=== PATIENT | male | born 1970 | race Two or more races ===

== ENCOUNTER 2020-05-29 19:29 | Inpatient (IN) | payer MEDICAID ==
[~2020-05-29] VITALS: Ht 177.8 cm; Wt 115.0 kg
--- NOTE | 2020-05-29 19:51 | NUR ---
pt was transfered by [facility] via [facility] for difficulty breathing, dizzyness and for pt to recieve dialysis. flight crew said pt was on bipap at contact and that his blood sugar was 27. pt was given d10 in route with bipap remved. pt blood sugar at contatct was 212 with pt o2 sats at 98% on 4l nc. pt has c/o left flank pain.
--- NOTE | 2020-05-29 19:59 | NUR ---
REPORT GIVEN TO JAH Huynh
--- NOTE | 2020-05-29 19:59 | NUR ---
FLIGHT CREW STATED "PT HAD A NEG RAPID COVID TEST PRIOR TO FLIGHT"
[2020-05-29] MEDS ORDERED: ACETAMINOPHEN 500 MG TABLET ONE (20:08)
[2020-05-29 20:13] LABS: MEAN CORPUSCULAR HGB CONC 32.5 g/dL (33.2-36.2); MEAN PLATELET VOLUME 6.1 fL (7.4-10.4); PLATELET COUNT 265 x10^3/uL (130-400); RED BLOOD COUNT 3.43 x10^6/uL (4.38-5.82); RED CELL DISTRIBUTION WIDTH 14.1 % (9.4-14.8)
[2020-05-29 20:25] LABS: ALANINE AMINOTRANSFERASE 11 U/L (12-78); ALBUMIN 3.4 g/dL (3.4-5.0); ANION GAP 11 mmol/L (5-15); CHLORIDE 93 mmol/L (98-107)
[2020-05-29] MEDS ORDERED: ACETAMINOPHEN 500 MG TABLET PO ONE (20:30)
--- NOTE | 2020-05-29 20:30 | NUR ---
PT UP TO BSC. PT INCONTINENT OF STOOL. PT CLEANED, COMPLETE LINEN CHANGE, BED AND MONITOR EQUIPMENT CLEANED. PT BELONGING'S PLACED IN BAG.
[2020-05-29 20:36] LABS: MD YES
[2020-05-29 20:39] LABS: <PLATELET ESTIMATE> ADEQUATE; <PLT MORPHOLOGY> NORMAL PLT MORPH; <RBC MORPHOLOGY> NORMAL; BAND#(MANUAL) 1.32 x10^3/uL; BANDS%(MANUAL) 7 % (0-7); LYMPH#(MANUAL) 0.38 x10^3/uL (1-3.4); LYMPHS% (MANUAL) 2 % (22-44); MONOS#(MANUAL) 0.95 x10^3/uL (0.3-2.7); MONOS% (MANUAL) 5 % (2-9); SEG#(MANUAL) 16.25 x10^3/uL (1.8-6.8); SEGS% (MANUAL) 86 % (42-75)
--- NOTE | 2020-05-29 20:48 | NUR ---
RECEIVED REPORT FROM JAH MEIER TO ASSUME CARE OF PT. AT THIS TIME.
[2020-05-29 20:54] LABS: ALKALINE PHOSPHATASE 98 U/L (45-117); BILIRUBIN,TOTAL 0.6 mg/dL (0.2-1.0); TOTAL PROTEIN 8.4 g/dL (6.4-8.2)
[2020-05-29] MEDS ORDERED: CEFTRIAXONE PMX 1GM/50ML 50 ML IV ONE (21:00)
[2020-05-29] MEDS ORDERED: AZITHROMYCIN 500 MG in SODIUM CHLORIDE 0.9% 250 ML IV ONE (21:00)
[2020-05-29] MEDS ORDERED: SODIUM CHLORIDE 0.9% 1,000ML IVBOLUS ONE (21:00)
--- NOTE | 2020-05-29 21:08 | NUR ---
PT. OUT OF ROOM FOR CT.
[2020-05-29] MEDS ORDERED: CEFTRIAXONE PMX 1GM/50ML 50 ML ONE (21:26)
--- NOTE | 2020-05-29 21:31 | NUR ---
2 sets of blood cultures completed
--- NOTE | 2020-05-29 21:57 | NUR ---
MARIOLA ASH IN TO SWAB PT. FOR COVID R/O. FSBS 93. IVF AND IV ABX INFSUING PER ORDER. MANUAL B/P TAKEN MACHINE NOT READING. PT. A&O X 4. NITRO PASTE THAT WAS IN PLACE METER READING CLERK WAS REMOVED AND SKIN WIPED CLEAN PER MARIOLA ASH. PT. IS ON 2L O2 VIA NC TO MAINTAIN O2 SAT >93%. DENIES USE OF O2 AT HOME. ALL MONITORS ARE IN PLACE. CALL LIGHT IN REACH. ALL SAFETY MEASURES OBSERVED.
[2020-05-29] MEDS ORDERED: MORPHINE SULFATE 4 MG/ML, 1ML IVPush PRN (22:00)
[2020-05-29] MEDS ORDERED: MORPHINE SULFATE 4 MG/ML, 1ML ONE (22:10)
[2020-05-30] MEDS: AZITHROMYCIN 500 MG in SODIUM CHLORIDE 0.9% 250 ML IV SCH
--- NOTE | 2020-05-30 00:22 | NUR ---
REPORT TO JAH MCCAULEY. FLOOR READY FOR PT. TRANSPORT.
--- NOTE | 2020-05-30 00:38 | NUR ---
FSBS RECHECK 77. PT. PROVIDED WITH 2 APPLE JUICES. REPORTED THIS TO JAH MCCAULEY. UNABLE TO COMPLETE MED REC PT. UNSURE; UNABLE TO FIND LIST ON PHONE.
--- NOTE | 2020-05-30 01:08 | NUR ---
[facility] IN TO EVAL PT. FOR ADMISSION.
[2020-05-30] MEDS ORDERED: DOCUSATE 100 MG CAPSULE PO PRN (01:30)
[2020-05-30] MEDS ORDERED: ACETAMINOPHEN 325 MG TABLET PO PRN (01:30)
[2020-05-30] MEDS ORDERED: CEFTRIAXONE PMX 1GM/50ML 50 ML IV ONE (01:30)
--- NOTE | 2020-05-30 01:35 | NUR ---
PT. BEING TRANSPORTED TO ROOM AT THIS TIME. NO ACUTE DISTRESS NOTED.
[2020-05-30] MEDS ORDERED: GLUCAGON 1 MG IM PRN (02:00)
[2020-05-30] MEDS ORDERED: DEXTROSE 50%, 50ML SYRINGE IVPush PRN (02:00)
[2020-05-30] MEDS ORDERED: DEXTROSE 4 GM TAB.CHEW PO PRN (02:00)
[2020-05-30] MEDS ORDERED: HYDROcodone/APAP 5/325 TABLET ONE (02:16)
[2020-05-30] MEDS: HEPARIN 5,000 UNITS/ML, 1ML SQ SCH ×2 (02:36→10:08)
[2020-05-30] MEDS: ZINC SULFATE 220 MG CAPSULE PO SCH (10:08)
[2020-05-30] MEDS: CHOLECALCIFEROL 5,000u TAB PO SCH (10:08)
[2020-05-30] MEDS: DEXAMETHASONE 4 MG TABLET PO SCH ×2 (10:08→17:04)
[2020-05-30 10:11] VITALS: BP 135/85
[2020-05-30] MEDS ORDERED: DOCU50LI24 PO (11:07)
[2020-05-30] MEDS ORDERED: ALBU6.7H8 INH (11:07)
[2020-05-30] MEDS ORDERED: ASPI-515 PO (11:07)
[2020-05-30] MEDS ORDERED: CHLO25AM PO (11:07)
[2020-05-30] MEDS ORDERED: ITRA100C PO (11:07)
[2020-05-30] MEDS ORDERED: GABA-826 PO (11:07)
[2020-05-30] MEDS ORDERED: CARV25TA PO (11:07)
[2020-05-30] MEDS ORDERED: HYDR-3245 PO (11:07)
[2020-05-30] MEDS ORDERED: MORPHINE SULFATE 4 MG/ML, 1ML ONE (13:35)
[2020-05-30] MEDS: SODIUM CHLORIDE FLUSH 10ML SYR IVF SCH ×2 (13:41→23:14)
[2020-05-30] MEDS: ASCORBIC ACID 500 MG TABLET PO SCH ×2 (13:43→17:04)
[2020-05-30] MEDS: MORPHINE SULFATE 4 MG/ML, 1ML IV PRN ×2 (13:43→23:00)
[2020-05-30 13:48] VITALS: BP 145/85
[2020-05-30 20:00] VITALS: BP 110/70
[2020-05-30] MEDS: CEFTRIAXONE PMX 2GM/50ML 50 ML IVPB SCH (23:14)
[2020-05-30] MEDS: MELATONIN 5 MG TABLET PO SCH (23:14)
[2020-05-31 03:21] VITALS: BP 115/80
[2020-05-31] MEDS: MORPHINE SULFATE 4 MG/ML, 1ML IV PRN ×4 (03:54→22:29)
[2020-05-31 06:02] LABS: ALBUMIN 2.9 g/dL (3.4-5.0); ANION GAP 12 mmol/L (5-15); CALCIUM 8.5 mg/dL (8.5-10.1); CHLORIDE 94 mmol/L (98-107); CREATININE 9.36 mg/dL (0.7-1.3)
[2020-05-31 06:06] LABS: BASOPHILS % (AUTO) 0 % (0-1); EOSINOPHILS % (AUTO) 0 % (1-7); LYMPHOCYTES % (AUTO) 2 % (22-44); MEAN CORPUSCULAR HGB CONC 32.6 g/dL (33.2-36.2); MEAN PLATELET VOLUME 6.9 fL (7.4-10.4); MONOCYTES % (AUTO) 4 % (2-9); NEUTROPHILS % (AUTO) 95 % (42-75); PLATELET COUNT 210 x10^3/uL (130-400); RED BLOOD COUNT 3.09 x10^6/uL (4.38-5.82); RED CELL DISTRIBUTION WIDTH 14.3 % (9.4-14.8)
[2020-05-31 07:53] LABS: MD SCAN
[2020-05-31] MEDS: HEPARIN 5,000 UNITS/ML, 1ML SQ SCH ×3 (09:20→17:33)
[2020-05-31] MEDS: DEXAMETHASONE 4 MG TABLET PO SCH ×2 (09:21→17:32)
[2020-05-31] MEDS: CHOLECALCIFEROL 5,000u TAB PO SCH (09:21)
[2020-05-31] MEDS: SODIUM CHLORIDE FLUSH 10ML SYR IVF SCH ×2 (09:22→21:00)
[2020-05-31] MEDS: ZINC SULFATE 220 MG CAPSULE PO SCH (09:22)
[2020-05-31] MEDS: ASCORBIC ACID 500 MG TABLET PO SCH ×2 (09:22→17:32)
[2020-05-31 10:01] VITALS: BP 156/94
[2020-05-31] MEDS ORDERED: LIDOCAINE-MPF 1%, 2ML ONE (10:46)
[2020-05-31 15:08] VITALS: BP 168/100
[2020-05-31 15:25] VITALS: BP 177/105
[2020-05-31] MEDS: ENALAPRILAT 1.25 MG/ML, 2ML IVPush PRN (15:27)
[2020-05-31] MEDS: SEVELAMER CARBONATE 800MG TAB PO SCH (17:31)
[2020-05-31 17:35] VITALS: BP 150/91
[2020-05-31 20:37] VITALS: BP 167/96
[2020-05-31] MEDS: CEFTRIAXONE PMX 2GM/50ML 50 ML IVPB SCH (22:16)
[2020-05-31] MEDS: MELATONIN 5 MG TABLET PO SCH (22:16)
[2020-05-31] MEDS: AZITHROMYCIN 500 MG in SODIUM CHLORIDE 0.9% 250 ML IV SCH (23:06)
[2020-06-01 00:22] VITALS: BP 119/47
[2020-06-01] MEDS: HEPARIN 5,000 UNITS/ML, 1ML SQ SCH ×3 (01:54→16:44)
[2020-06-01] MEDS: MORPHINE SULFATE 4 MG/ML, 1ML IV PRN ×4 (05:41→23:04)
[2020-06-01] MEDS: SEVELAMER CARBONATE 800MG TAB PO SCH ×3 (08:22→16:45)
[2020-06-01] MEDS: ASCORBIC ACID 500 MG TABLET PO SCH (08:22)
[2020-06-01] MEDS: DEXAMETHASONE 4 MG TABLET PO SCH (08:22)
[2020-06-01] MEDS: ZINC SULFATE 220 MG CAPSULE PO SCH (08:22)
[2020-06-01] MEDS: CHOLECALCIFEROL 5,000u TAB PO SCH (08:22)
[2020-06-01] MEDS: SODIUM CHLORIDE FLUSH 10ML SYR IVF SCH ×2 (08:23→19:30)
[2020-06-01 08:30] VITALS: BP 166/98
[2020-06-01 09:20] LABS: ANION GAP 11 mmol/L (5-15); CHLORIDE 96 mmol/L (98-107); CREATININE 7.55 mg/dL (0.7-1.3)
[2020-06-01 09:34] LABS: BASOPHILS % (AUTO) 0 % (0-1); EOSINOPHILS % (AUTO) 0 % (1-7); LYMPHOCYTES % (AUTO) 3 % (22-44); MEAN CORPUSCULAR HEMOGLOBIN 28.8 pg (27.5-34.5); MEAN CORPUSCULAR HGB CONC 32.2 g/dL (33.2-36.2); MEAN PLATELET VOLUME 6.9 fL (7.4-10.4); MONOCYTES % (AUTO) 4 % (2-9); NEUTROPHILS % (AUTO) 94 % (42-75); PLATELET COUNT 228 x10^3/uL (130-400); RED BLOOD COUNT 3.33 x10^6/uL (4.38-5.82); RED CELL DISTRIBUTION WIDTH 14.3 % (9.4-14.8)
[2020-06-01 09:56] LABS: MD SCAN
[2020-06-01 15:25] VITALS: BP 171/105
[2020-06-01] MEDS ORDERED: ENALAPRILAT 1.25 MG/ML, 1ML ONE (15:45)
[2020-06-01] MEDS: ENALAPRILAT 1.25 MG/ML, 2ML IVPush PRN (15:47)
[2020-06-01 16:49] VITALS: BP 165/96
[2020-06-01 18:42] VITALS: BP 170/99
[2020-06-01] MEDS: MELATONIN 5 MG TABLET PO SCH (20:47)
[2020-06-01] MEDS: CEFTRIAXONE PMX 2GM/50ML 50 ML IVPB SCH (20:48)
[2020-06-01] MEDS: AZITHROMYCIN 500 MG in SODIUM CHLORIDE 0.9% 250 ML IV SCH (23:46)
[2020-06-02] MEDS: HEPARIN 5,000 UNITS/ML, 1ML SQ SCH ×3 (00:38→15:58)
[2020-06-02 01:08] VITALS: BP 119/77
[2020-06-02] MEDS: MORPHINE SULFATE 4 MG/ML, 1ML IV PRN ×2 (04:14→08:56)
[2020-06-02 05:34] LABS: ALBUMIN 2.9 g/dL (3.4-5.0); ANION GAP 9 mmol/L (5-15); CALCIUM 7.8 mg/dL (8.5-10.1); CHLORIDE 98 mmol/L (98-107)
[2020-06-02] MEDS: SODIUM CHLORIDE FLUSH 10ML SYR IVF SCH (07:45)
[2020-06-02] MEDS: CHOLECALCIFEROL 5,000u TAB PO SCH (07:45)
[2020-06-02] MEDS: SEVELAMER CARBONATE 800MG TAB PO SCH ×3 (07:46→17:10)
[2020-06-02 09:00] VITALS: BP 138/54
[2020-06-02 13:00] VITALS: BP 200/129
[2020-06-02] MEDS ORDERED: OMNIPAQUE 350 MG/ML, 100ML BOTTLE ONE (13:56)
[2020-06-02] MEDS ORDERED: AZIT500T2 PO (15:06)
[2020-06-02] MEDS ORDERED: CEFD300C37 PO (15:06)
== END 2020-06-02 23:52 | disposition home or self-care (01) | DRG 720 ==
LOC: ED 22:34 → EDIP 22:36 → ICU 05-30 01:40 → 5SO 05-31 19:31
PROVIDERS: ADMIT Internal Medicine; ATTEND Internal Medicine
PROC: 5A1D70Z Performance of Urinary Filtration, Intermittent, Less than 6 Hours Per Day (ICD-10-PCS; principal; 2020-05-30)
PROC: 5A1D70Z Performance of Urinary Filtration, Intermittent, Less than 6 Hours Per Day (ICD-10-PCS; 2020-05-31)
PROC: 5A1D70Z Performance of Urinary Filtration, Intermittent, Less than 6 Hours Per Day (ICD-10-PCS; 2020-06-01)
PROC: 5A1D70Z Performance of Urinary Filtration, Intermittent, Less than 6 Hours Per Day (ICD-10-PCS; 2020-06-02)
DX: A41.9 Sepsis, unspecified organism (principal); D63.1 Anemia in chronic kidney disease; E16.2 Hypoglycemia, unspecified; E88.89 Other specified metabolic disorders; E87.1 Hypo-osmolality and hyponatremia; I13.2 Hypertensive heart and chronic kidney disease with heart failure and with stage 5 chronic kidney disease, or end stage renal disease; J15.9 Unspecified bacterial pneumonia; I50.31 Acute diastolic (congestive) heart failure; J44.0 Chronic obstructive pulmonary disease with (acute) lower respiratory infection; J84.10 Pulmonary fibrosis, unspecified; J96.01 Acute respiratory failure with hypoxia; N18.6 End stage renal disease; R65.20 Severe sepsis without septic shock; Z20.828 Contact with and (suspected) exposure to other viral communicable diseases; Z99.2 Dependence on renal dialysis; Z87.891 Personal history of nicotine dependence
CPT/HCPCS: 36415; 70450; 71045; 71275; 80048; 80053; 80069; 82306; 83605; 83735; 83880; 83970; 84100; 84145; 85025; 86480; 86705; 86706; 87040; 87081; 87340; 87635; 90935; 93005; 93306; 93356; 96365; 96367; 96375; 96376; 99291; G0378; J0456; J0696; J1644; Q9967; J2270; J7030; J7050

== ENCOUNTER 2020-08-04 22:33 | Inpatient (IN) | payer MEDICAID ==
[~2020-08-04] VITALS: Ht 177.8 cm; Wt 96.6 kg
[~2020-08-04 22:33] MED LIST: ALBU6.7H8 INH; ASPI-515 PO; AZIT500T2 PO; CARV25TA PO; CEFD300C37 PO; CHLO25AM PO; DOCU50LI24 PO; GABA-826 PO; HYDR-3245 PO; ITRA100C PO
--- NOTE | 2020-08-04 22:33 | NUR ---
INITIAL PT CONTACT. PT PRESENTS TO ED A TRANSFER FROM [facility] C/O GENERALIZED WEAKNESS, SOB, BILAT LE SWELLING. PT STATES HE IS A DIALYSIS PT AND GOES TO DIALYSIS FRIDAY, FRIDAY AND FRIDAY. PT HAS NOT BEEN TO DIALYSIS IN 4 DAYS. PT WAS FOUND TO HAVE A POSTASSIUM OF 6.8, WAS GIVEN TO 1G OF CALCIUM. PT STATES "I AM FEELING A LOT LESS WEAK NOW, BUT IT IS STILL THERE." PT SITTING UPRIGHT ON GURNEY, NAD. PLACED ON CONTINUOUS PULSE OX AND CARDIAC MONITORING. WARM BLANKETS PROVIDED. NO ADDITIONAL NEEDS AT THIS TIME. CALL LIGHT AND PERSONAL BELONGINGS WITHIN REACH.
[2020-08-04] MEDS ORDERED: HYDROcodone/APAP 5/325 TABLET ONE (22:47)
[2020-08-04] MEDS ORDERED: HYDROcodone/APAP 5/325 TABLET PO ONE (23:00)
--- NOTE | 2020-08-04 23:15 | NUR ---
PT TO BATHROOM WITH THIS RN VIA WHEELCHAIR.
[2020-08-04 23:26] LABS: ALBUMIN 3.6 g/dL (3.4-5.0); ANION GAP 15 mmol/L (5-15); CALCIUM 8.1 mg/dL (8.5-10.1); CHLORIDE 97 mmol/L (98-107)
--- NOTE | 2020-08-05 00:03 | NUR ---
PT SITTING UPRIGHT ON GURNEY WATCHING TV, VSS. PT REPORTS MINIMAL PAIN RELIEF FOLLOWING MEDICATION ADMIN. PT DENIES ANY NEEDS AT THIS TIME. CALL LIGHT AND PERSONAL BELONGINGS WITHING REACH. FALL PRECAUTIONS IN PLACE.
--- NOTE | 2020-08-05 00:26 | NUR ---
Pt to be admitted to [facility], room 512. Report called to DAMON .
[2020-08-05] MEDS ORDERED: hydrALAzine 20 MG/ML, 1ML IVPush PRN (00:30)
[2020-08-05] MEDS ORDERED: ACETAMINOPHEN 325 MG TABLET PO PRN (00:30)
[2020-08-05] MEDS ORDERED: ONDANSETRON 2MG/ML, 2ML IVPush PRN (00:30)
[2020-08-05] MEDS ORDERED: HYDROcodone/APAP 10/325 MG TABLET PO PRN (00:30)
[2020-08-05] MEDS ORDERED: MELATONIN 5 MG TABLET PO PRN (00:30)
[2020-08-05] MEDS ORDERED: ALBUTEROL HFA 90 MCG/SPRAY INH PRN (00:30)
[2020-08-05] MEDS ORDERED: DOCUSATE 100 MG CAPSULE PO PRN (00:30)
[2020-08-05 01:12] VITALS: BP 193/119
[2020-08-05] MEDS: HEPARIN 5,000 UNITS/ML, 1ML SQ SCH ×3 (01:29→16:35)
[2020-08-05 01:32] VITALS: BP 179/110
[2020-08-05 01:55] VITALS: BP 165/100
[2020-08-05] MEDS: SODIUM ZIRCONIUM CYCLOSILICATE 10 GM PO ONE ×2 (01:56→02:43)
[2020-08-05] MEDS: ITRACONAZOLE 100 MG CAPSULE PO SCH ×4 (02:44→20:53)
[2020-08-05 05:43] LABS: ANION GAP 17 mmol/L (5-15); CHLORIDE 97 mmol/L (98-107)
[2020-08-05 06:40] VITALS: BP 177/102
[2020-08-05] MEDS: ASPIRIN 81 MG TABLET EC PO SCH (12:00)
[2020-08-05] MEDS: CARVEDILOL 25 MG TABLET PO SCH ×2 (12:00→20:50)
[2020-08-05] MEDS: GABAPENTIN 100 MG CAPSULE PO SCH ×2 (12:00→20:50)
[2020-08-05 13:56] VITALS: BP 155/89
[2020-08-05] MEDS: OXYcodone/APAP 10/325MG TABLET PO PRN ×2 (14:27→20:51)
[2020-08-05 19:07] VITALS: BP 154/89
[2020-08-06 00:09] VITALS: BP 160/94
[2020-08-06] MEDS: HEPARIN 5,000 UNITS/ML, 1ML SQ SCH ×2 (00:11→09:26)
[2020-08-06] MEDS: OXYcodone/APAP 10/325MG TABLET PO PRN ×3 (03:23→10:44)
[2020-08-06 05:49] LABS: BASOPHILS % (AUTO) 2 % (0-1); EOSINOPHILS % (AUTO) 4 % (1-7); LYMPHOCYTES % (AUTO) 14 % (22-44); MEAN CORPUSCULAR HEMOGLOBIN 29.9 pg (27.5-34.5); MEAN CORPUSCULAR HGB CONC 34.1 g/dL (33.2-36.2); MEAN PLATELET VOLUME 7.1 fL (7.4-10.4); MONOCYTES % (AUTO) 12 % (2-9); NEUTROPHILS % (AUTO) 67 % (42-75); PLATELET COUNT 214 x10^3/uL (130-400); RED BLOOD COUNT 3.38 x10^6/uL (4.38-5.82); RED CELL DISTRIBUTION WIDTH 15.9 % (9.4-14.8)
[2020-08-06 05:55] LABS: MD NO
[2020-08-06 05:58] LABS: ALBUMIN 3.2 g/dL (3.4-5.0); ANION GAP 11 mmol/L (5-15); CALCIUM 7.8 mg/dL (8.5-10.1); CHLORIDE 99 mmol/L (98-107)
[2020-08-06 07:54] VITALS: BP 165/97
[2020-08-06] MEDS: ASPIRIN 81 MG TABLET EC PO SCH (09:00)
[2020-08-06] MEDS: ITRACONAZOLE 100 MG CAPSULE PO SCH (09:00)
[2020-08-06] MEDS: CARVEDILOL 25 MG TABLET PO SCH (09:26)
[2020-08-06] MEDS: GABAPENTIN 100 MG CAPSULE PO SCH (09:26)
[2020-08-06 10:06] VITALS: BP 157/95
== END 2020-08-06 12:50 | disposition home or self-care (01) | DRG 425 ==
LOC: ED 23:05 → EDIP 08-05 00:04 → 5SO 08-05 01:05 → DCLOUNGE 08-06 12:42
PROVIDERS: ADMIT Family Medicine; ATTEND Internal Medicine
PROC: 5A1D70Z Performance of Urinary Filtration, Intermittent, Less than 6 Hours Per Day (ICD-10-PCS; principal; 2020-08-05)
DX: E87.5 Hyperkalemia (principal); E87.1 Hypo-osmolality and hyponatremia; G89.29 Other chronic pain; I13.2 Hypertensive heart and chronic kidney disease with heart failure and with stage 5 chronic kidney disease, or end stage renal disease; I16.1 Hypertensive emergency; I21.4 Non-ST elevation (NSTEMI) myocardial infarction; I50.9 Heart failure, unspecified; J44.1 Chronic obstructive pulmonary disease with (acute) exacerbation; N18.6 End stage renal disease; Z86.15 Personal history of latent tuberculosis infection; Z87.891 Personal history of nicotine dependence; Z91.14 Patient's other noncompliance with medication regimen; Z99.2 Dependence on renal dialysis; M25.569 Pain in unspecified knee; E87.70 Fluid overload, unspecified
CPT/HCPCS: 36415; 80048; 80069; 82040; 84100; 85025; 90935; 93005; 96372; 96374; 99285; G0378; J1644; J0360

== ENCOUNTER 2021-01-04 00:12 | Inpatient (IN) | payer MEDICAID ==
[~2021-01-04] VITALS: Ht 177.8 cm; Wt 101.2 kg
[~2021-01-04 00:12] MED LIST changes: -ASPI-515 PO; +ASPI-963 PO; -HYDR-3245 PO; +HYDR1TAB53 PO
--- NOTE | 2021-01-04 00:35 | NUR ---
PT C/O OF CHEST PAIN ANGELICA 3 WEEKS AGO. PT STATING N/V EARLIER. PT WAS FOUND AT HOME ALTERED. +LOC STATES SHARP PAIN DENIES RADIATING PAIN. EKG COMPLETED. ATTACHED TO CARD.SP02/BP MONITORS. VSS. NADN AT THIS TIME. DENIES SOB AND HEADACHE PT GIVEN 2 NITRO, 324 ASA, 4 MG ZOFRAN, 4 MG MORPHINE AND PUT ON NITRO DRIP 50MCG/MIN WORD PROCESSOR TECHNICIAN. CONTINUEING DRIP IN ER. FISTULA IN LEFT ARM
[2021-01-04] MEDS ORDERED: NITROGLYCERIN OINT 2%, 1GM TP ONE ×2 (00:46→01:00)
[2021-01-04 00:49] LABS: BASOPHILS % (AUTO) 2 % (0-1); EOSINOPHILS % (AUTO) 7 % (1-7); LYMPHOCYTES % (AUTO) 19 % (22-44); MEAN CORPUSCULAR HEMOGLOBIN 29.2 pg (27.5-34.5); MEAN CORPUSCULAR HGB CONC 33.3 g/dL (33.2-36.2); MEAN PLATELET VOLUME 6.5 fL (7.4-10.4); MONOCYTES % (AUTO) 12 % (2-9); NEUTROPHILS % (AUTO) 61 % (42-75); PLATELET COUNT 536 x10^3/uL (130-400); RED BLOOD COUNT 3.57 x10^6/uL (4.38-5.82); RED CELL DISTRIBUTION WIDTH 15.3 % (9.4-14.8)
[2021-01-04 01:00] LABS: ANION GAP 8 mmol/L (5-15); CHLORIDE 98 mmol/L (98-107); CREATININE 7.44 mg/dL (0.7-1.3)
[2021-01-04] MEDS ORDERED: ONDANSETRON 2MG/ML, 2ML IVPush ONE (01:00)
[2021-01-04] MEDS ORDERED: MORPHINE SULFATE 4 MG/ML, 1ML IVPush PRN (01:00)
[2021-01-04 01:16] LABS: TROPONIN I 0.107 ng/mL (0.000-0.045)
[2021-01-04] MEDS ORDERED: MOMETASONE INH (01:17)
[2021-01-04] MEDS ORDERED: OXYC-307 PO (01:17)
--- NOTE | 2021-01-04 01:20 | NUR ---
Patient is resting comfortably in bed. Bed in lowest, rails engaged, call light on lap. Vital Signs within normal limits. WCTM. NADN AT THIS TIME.
[2021-01-04 01:22] LABS: MD SCAN
--- NOTE | 2021-01-04 01:50 | NUR ---
PRECEPTOR RN: Patient is resting comfortably in bed. Bed in lowest, rails engaged, call light on lap. PT UPDATED ON PLAN OF CARE, DENIES ADDITIONAL QUESTIONS OR NEEDS AT THIS TIME. LIGHTS OFF FOR COMFORT, PROVIDED WATER AND ICE PER REQUEST. WCTM. WAITING FOR CARD TELE BED.
[2021-01-04] MEDS ORDERED: MORPHINE SULFATE 4 MG/ML, 1ML ONE (02:01)
[2021-01-04] MEDS ORDERED: ONDANSETRON 2MG/ML, 2ML ONE (02:01)
--- NOTE | 2021-01-04 02:09 | NUR ---
Patient is resting comfortably in bed. HOSPITAL BED BROUGHT TO PATIENT. Bed in lowest POSITION, rails engaged, call light on lap. NO ADDITIONAL NEEDS AND QUESTIONS AT THIS TIME. Vital Signs within normal limits. WCTM.
--- NOTE | 2021-01-04 02:23 | NUR ---
GIVEN PT CRACKERS, WATER, AND PUDDING.
--- NOTE | 2021-01-04 02:24 | NUR ---
PT RESTING IN BED WATCHING TV. NADN. PEREZ
--- NOTE | 2021-01-04 03:10 | NUR ---
PT STATES CP IS FEELING A LOT BETTER 3/0. STATES HE IS GOING TO TRY AND GET SOME REST. BREATHING EVEN AND UNLABORED. ATTACHED TO MONITORS. VSS. BED IN LOW POSITION. CALL LIGHT ON LAP. NADN. WCTM. AWAITING TO BE MOVED TO THE FLOOR.
[2021-01-04] MEDS ORDERED: DOCUSATE 100 MG CAPSULE PO PRN (03:30)
[2021-01-04] MEDS ORDERED: MELATONIN 5 MG TABLET PO PRN (03:30)
[2021-01-04] MEDS ORDERED: TEMAZEPAM 15 MG CAPSULE PO PRN (03:30)
[2021-01-04] MEDS ORDERED: ONDANSETRON 2MG/ML, 2ML IVPush PRN (03:30)
[2021-01-04] MEDS ORDERED: POLYETHYLENE GLYCOL 17 GM PACKET PO PRN (03:30)
[2021-01-04] MEDS ORDERED: LORazepam 2 MG/ML, 1ML IVPush PRN (03:30)
[2021-01-04] MEDS ORDERED: BISACODYL 10 MG SUPP PR PRN (03:30)
[2021-01-04] MEDS: AZITHROMYCIN 500 MG in SODIUM CHLORIDE 0.9% 250 ML IV SCH (03:36)
--- NOTE | 2021-01-04 03:41 | NUR ---
Patient is resting comfortably in bed. Bed in lowest, rails engaged, call light on lap. Vital Signs within normal limits. WCTM.
[2021-01-04 04:00] LABS: TROPONIN I 0.111 ng/mL (0.000-0.045)
--- NOTE | 2021-01-04 05:24 | NUR ---
GAVE REPORT TO WHITNEY TYSON.
--- NOTE | 2021-01-04 05:26 | NUR ---
PT READY FOR TRANSPORT. PT CONDITION UNCHANGED. NADN.
[2021-01-04] MEDS ORDERED: OMNIPAQUE 350 MG/ML, 100ML BOTTLE ONE (05:44)
[2021-01-04 06:05] VITALS: BP 162/105
[2021-01-04] MEDS: MORPHINE SULFATE 4 MG/ML, 1ML IVPush PRN ×5 (06:18→22:33)
[2021-01-04] MEDS: CEFTRIAXONE 2 GM in DEXTROSE 5% 50 ML IV SCH (06:37)
[2021-01-04 07:53] VITALS: BP 165/109
[2021-01-04] MEDS: FAMOTIDINE 20 MG TABLET PO SCH (07:56)
[2021-01-04] MEDS: hydrALAzine 20 MG/ML, 1ML IVPush PRN (07:56)
[2021-01-04] MEDS ORDERED: HEPARIN 5,000 UNITS/ML, 1ML IV ONE (08:00)
[2021-01-04] MEDS: OXYcodone IR 5MG TABLET PO PRN ×4 (08:52→21:08)
[2021-01-04] MEDS: ACETAMINOPHEN 325 MG TABLET PO PRN ×3 (08:52→17:08)
[2021-01-04 09:01] VITALS: BP 155/77
[2021-01-04] MEDS: HEPARIN 25,000 UNITS/250ML PMX 250 ML IV PRN (09:01)
[2021-01-04] MEDS ORDERED: ARANESP 60 MCG/ML **ESRD SQ SCH (10:00)
[2021-01-04 12:02] LABS: TROPONIN I 0.113 ng/mL (0.000-0.045)
[2021-01-04 12:35] VITALS: BP 159/86
[2021-01-04] MEDS: HEPARIN 5,000 UNITS/ML, 1ML IV PRN ×2 (15:55→21:36)
[2021-01-04 19:35] LABS: TROPONIN I 0.112 ng/mL (0.000-0.045)
[2021-01-04 19:50] VITALS: BP 156/63
[2021-01-05] MEDS: ACETAMINOPHEN 325 MG TABLET PO PRN (00:29)
[2021-01-05 00:58] VITALS: BP 160/109
[2021-01-05] MEDS: OXYcodone IR 5MG TABLET PO PRN ×4 (01:05→23:01)
[2021-01-05] MEDS: MORPHINE SULFATE 4 MG/ML, 1ML IVPush PRN ×4 (02:41→20:30)
[2021-01-05] MEDS: AZITHROMYCIN 500 MG in SODIUM CHLORIDE 0.9% 250 ML IV SCH (03:05)
[2021-01-05 03:48] LABS: MEAN CORPUSCULAR HEMOGLOBIN 29.6 pg (27.5-34.5); MEAN CORPUSCULAR HGB CONC 33.3 g/dL (33.2-36.2); MEAN PLATELET VOLUME 6.4 fL (7.4-10.4); PLATELET COUNT 465 x10^3/uL (130-400); RED BLOOD COUNT 3.26 x10^6/uL (4.38-5.82); RED CELL DISTRIBUTION WIDTH 15.4 % (9.4-14.8)
[2021-01-05 03:58] LABS: ANION GAP 12 mmol/L (5-15); CALCIUM 7.2 mg/dL (8.5-10.1); CHLORIDE 93 mmol/L (98-107); CREATININE 8.84 mg/dL (0.7-1.3)
[2021-01-05 04:06] LABS: MD YES
[2021-01-05] MEDS: HEPARIN 5,000 UNITS/ML, 1ML IV PRN ×2 (04:09→17:41)
[2021-01-05 05:02] LABS: BAND#(MANUAL) 0.07 x10^3/uL; BANDS%(MANUAL) 1 % (0-7); BASOS#(MANUAL) 0.13 x10^3/uL (0-0.1); BASOS% (MANUAL) 2 % (0-1); EOS#(MANUAL) 0.73 x10^3/uL (0.0-0.4); EOS% (MANUAL) 11 % (1-7); LYMPH#(MANUAL) 0.92 x10^3/uL (1-3.4); LYMPHS% (MANUAL) 14 % (22-44); MONOS#(MANUAL) 0.33 x10^3/uL (0.3-2.7); MONOS% (MANUAL) 5 % (2-9); SEG#(MANUAL) 4.42 x10^3/uL (1.8-6.8); SEGS% (MANUAL) 67 % (42-75)
[2021-01-05 05:03] LABS: ANISOCYTOSIS 1+; OVALOCYTES 1+; TEAR DROPS 1+
[2021-01-05 05:04] LABS: POLYCHROMASIA 1+; SCHISTOCYTES 1+; TARGET CELLS 1+
[2021-01-05 05:05] LABS: <PLATELET ESTIMATE> INCREASED; <PLT MORPHOLOGY> NORMAL PLT MORPH
[2021-01-05] MEDS: HEPARIN 25,000 UNITS/250ML PMX 250 ML IV PRN ×2 (05:37→22:57)
[2021-01-05] MEDS: CEFTRIAXONE 2 GM in DEXTROSE 5% 50 ML IV SCH (08:11)
[2021-01-05] MEDS: FAMOTIDINE 20 MG TABLET PO SCH (08:11)
[2021-01-05 08:17] VITALS: BP 158/100
[2021-01-05 12:56] VITALS: BP 164/97
[2021-01-05] MEDS: SEVELAMER CARBONATE 800MG TAB PO SCH ×2 (13:21→17:04)
[2021-01-05 20:59] VITALS: BP 173/102
[2021-01-05] MEDS: hydrALAzine 20 MG/ML, 1ML IVPush PRN (21:04)
[2021-01-05 22:21] VITALS: BP 168/90
[2021-01-06] MEDS: HEPARIN 5,000 UNITS/ML, 1ML IV PRN (00:21)
[2021-01-06] MEDS: MORPHINE SULFATE 4 MG/ML, 1ML IVPush PRN ×6 (00:33→22:08)
[2021-01-06 02:00] VITALS: BP 163/91
[2021-01-06] MEDS: AZITHROMYCIN 500 MG in SODIUM CHLORIDE 0.9% 250 ML IV SCH (02:59)
[2021-01-06] MEDS: OXYcodone IR 5MG TABLET PO PRN (04:13)
[2021-01-06 06:16] LABS: MEAN CORPUSCULAR HEMOGLOBIN 29.5 pg (27.5-34.5); MEAN CORPUSCULAR HGB CONC 33.9 g/dL (33.2-36.2); MEAN PLATELET VOLUME 6.4 fL (7.4-10.4); PLATELET COUNT 461 x10^3/uL (130-400); RED BLOOD COUNT 3.32 x10^6/uL (4.38-5.82); RED CELL DISTRIBUTION WIDTH 15.4 % (9.4-14.8)
[2021-01-06 06:25] LABS: ANION GAP 6 mmol/L (5-15); CALCIUM 8.2 mg/dL (8.5-10.1); CHLORIDE 94 mmol/L (98-107); CREATININE 7.03 mg/dL (0.7-1.3)
[2021-01-06 07:00] LABS: MD YES
[2021-01-06 07:07] LABS: BASOS#(MANUAL) 0.23 x10^3/uL (0-0.1); BASOS% (MANUAL) 3 % (0-1); EOS#(MANUAL) 0.53 x10^3/uL (0.0-0.4); EOS% (MANUAL) 7 % (1-7); LYMPHS% (MANUAL) 12 % (22-44); MONOS#(MANUAL) 0.38 x10^3/uL (0.3-2.7); MONOS% (MANUAL) 5 % (2-9); SEG#(MANUAL) 5.48 x10^3/uL (1.8-6.8); SEGS% (MANUAL) 73 % (42-75)
[2021-01-06 07:08] LABS: POLYCHROMASIA 1+
[2021-01-06 07:09] LABS: <PLATELET ESTIMATE> INCREASED; <PLT MORPHOLOGY> NORMAL PLT MORPH
[2021-01-06 07:13] VITALS: BP 176/97
[2021-01-06] MEDS: FAMOTIDINE 20 MG TABLET PO SCH (07:49)
[2021-01-06] MEDS: CEFTRIAXONE 2 GM in DEXTROSE 5% 50 ML IV SCH (07:49)
[2021-01-06] MEDS: SEVELAMER CARBONATE 800MG TAB PO SCH ×3 (07:49→17:43)
[2021-01-06] MEDS: CARVEDILOL 6.25 MG TABLET PO SCH ×2 (12:17→17:44)
[2021-01-06 12:42] VITALS: BP 165/96
[2021-01-06] MEDS: HEPARIN 25,000 UNITS/250ML PMX 250 ML IV PRN (13:52)
[2021-01-06] MEDS ORDERED: HEPARIN 5,000 UNITS/ML, 1ML IV PRN (16:00)
[2021-01-06] MEDS ORDERED: HEPARIN 25,000 UNITS/250ML PMX 250 ML IV PRN (16:00)
[2021-01-06 19:22] VITALS: BP 157/92
[2021-01-06] MEDS: APIXABAN 5 MG TABLET PO SCH (21:29)
[2021-01-07 00:58] VITALS: BP 159/89
[2021-01-07] MEDS: MORPHINE SULFATE 4 MG/ML, 1ML IVPush PRN ×5 (02:03→22:33)
[2021-01-07] MEDS: AZITHROMYCIN 500 MG in SODIUM CHLORIDE 0.9% 250 ML IV SCH (02:07)
[2021-01-07 05:22] LABS: MEAN CORPUSCULAR HEMOGLOBIN 29.6 pg (27.5-34.5); MEAN CORPUSCULAR HGB CONC 34.1 g/dL (33.2-36.2); MEAN PLATELET VOLUME 6.5 fL (7.4-10.4); PLATELET COUNT 479 x10^3/uL (130-400); RED BLOOD COUNT 3.46 x10^6/uL (4.38-5.82); RED CELL DISTRIBUTION WIDTH 15.7 % (9.4-14.8)
[2021-01-07 05:27] LABS: ALBUMIN 3.2 g/dL (3.4-5.0); ANION GAP 12 mmol/L (5-15); CALCIUM 8.4 mg/dL (8.5-10.1); CHLORIDE 93 mmol/L (98-107); CREATININE 8.88 mg/dL (0.7-1.3)
[2021-01-07 06:00] LABS: MD YES
[2021-01-07 06:11] LABS: BASOS#(MANUAL) 0.22 x10^3/uL (0-0.1); BASOS% (MANUAL) 3 % (0-1); EOS% (MANUAL) 7 % (1-7); LYMPH#(MANUAL) 0.72 x10^3/uL (1-3.4); LYMPHS% (MANUAL) 10 % (22-44); MONOS#(MANUAL) 0.72 x10^3/uL (0.3-2.7); MONOS% (MANUAL) 10 % (2-9); OVALOCYTES 1+; POLYCHROMASIA 1+; SEG#(MANUAL) 5.04 x10^3/uL (1.8-6.8); SEGS% (MANUAL) 70 % (42-75)
[2021-01-07 06:12] LABS: <PLATELET ESTIMATE> INCREASED; <PLT MORPHOLOGY> NORMAL PLT MORPH
[2021-01-07] MEDS: CARVEDILOL 6.25 MG TABLET PO SCH (06:13)
[2021-01-07 07:52] VITALS: BP 155/90
[2021-01-07] MEDS: CEFTRIAXONE 2 GM in DEXTROSE 5% 50 ML IV SCH (08:14)
[2021-01-07] MEDS: APIXABAN 5 MG TABLET PO SCH ×2 (08:14→20:42)
[2021-01-07] MEDS: SEVELAMER CARBONATE 800MG TAB PO SCH ×3 (08:14→17:36)
[2021-01-07] MEDS: FAMOTIDINE 20 MG TABLET PO SCH (08:14)
[2021-01-07] MEDS ORDERED: ARANESP 60 MCG/ML **ESRD SQ SCH (09:50)
[2021-01-07] MEDS: OXYcodone IR 5MG TABLET PO PRN ×3 (10:18→20:43)
[2021-01-07 11:34] VITALS: BP 167/98
[2021-01-07] MEDS: CARVEDILOL 12.5 MG TABLET PO SCH (17:37)
[2021-01-07 18:58] VITALS: BP 167/101
[2021-01-07 20:40] VITALS: BP 169/99
[2021-01-08] MEDS: OXYcodone IR 5MG TABLET PO PRN ×3 (00:54→12:04)
[2021-01-08 01:24] VITALS: BP 178/105
[2021-01-08 01:37] VITALS: BP 207/118
[2021-01-08] MEDS: hydrALAzine 20 MG/ML, 1ML IVPush PRN (01:42)
[2021-01-08 02:43] VITALS: BP 185/110
[2021-01-08] MEDS: MORPHINE SULFATE 4 MG/ML, 1ML IVPush PRN (02:51)
[2021-01-08] MEDS: AZITHROMYCIN 500 MG in SODIUM CHLORIDE 0.9% 250 ML IV SCH (02:51)
[2021-01-08 03:33] VITALS: BP 142/88
[2021-01-08] MEDS: CARVEDILOL 12.5 MG TABLET PO SCH (06:11)
[2021-01-08 06:17] LABS: ALBUMIN 3.2 g/dL (3.4-5.0); ANION GAP 12 mmol/L (5-15); CALCIUM 8.4 mg/dL (8.5-10.1); CHLORIDE 92 mmol/L (98-107)
[2021-01-08 06:49] VITALS: BP 158/101
[2021-01-08] MEDS: SEVELAMER CARBONATE 800MG TAB PO SCH (08:26)
[2021-01-08] MEDS: CEFTRIAXONE 2 GM in DEXTROSE 5% 50 ML IV SCH (08:26)
[2021-01-08] MEDS: FAMOTIDINE 20 MG TABLET PO SCH (08:27)
[2021-01-08] MEDS: APIXABAN 5 MG TABLET PO SCH (08:30)
[2021-01-08] MEDS ORDERED: APIX5TAB PO (11:01)
[2021-01-08] MEDS ORDERED: CARVEDILOL 25 MG TABLET ONE (11:58)
[2021-01-08] MEDS ORDERED: CARVEDILOL 25 MG TABLET PO SCH (12:00)
[2021-01-11] MEDS ORDERED: ARANESP 60 MCG/ML **ESRD SQ SCH (10:00)
== END 2021-01-08 12:26 | disposition home or self-care (01) | DRG 134 ==
LOC: ED 00:37 → EDIP 02:09 → 4EST 05:48
PROVIDERS: ADMIT Internal Medicine; ATTEND Internal Medicine
PROC: 5A1D70Z Performance of Urinary Filtration, Intermittent, Less than 6 Hours Per Day (ICD-10-PCS; principal; 2021-01-04)
DX: I26.99 Other pulmonary embolism without acute cor pulmonale (principal); I21.A1 Myocardial infarction type 2; I13.2 Hypertensive heart and chronic kidney disease with heart failure and with stage 5 chronic kidney disease, or end stage renal disease; J18.9 Pneumonia, unspecified organism; I42.9 Cardiomyopathy, unspecified; N18.6 End stage renal disease; I50.9 Heart failure, unspecified; J44.0 Chronic obstructive pulmonary disease with (acute) lower respiratory infection; D63.1 Anemia in chronic kidney disease; I34.0 Nonrheumatic mitral (valve) insufficiency; Z20.822 Contact with and (suspected) exposure to COVID-19; Z79.01 Long term (current) use of anticoagulants; Z86.15 Personal history of latent tuberculosis infection; Z86.711 Personal history of pulmonary embolism; Z86.73 Personal history of transient ischemic attack (TIA), and cerebral infarction without residual deficits; Z98.1 Arthrodesis status; Z99.2 Dependence on renal dialysis
CPT/HCPCS: 36415; 71045; 71275; 80048; 80069; 82040; 83735; 83880; 83970; 84100; 84443; 84484; 85025; 85520; 90935; 93005; 93306; 93970; 96374; 96375; 99285; G0378; J0456; J0696; J0882; J1644; J2405; Q9967; U0005; J0360; J2270; J7050; U0003

== ENCOUNTER 2021-04-23 16:53 | Inpatient (IN) | payer MEDICAID ==
[~2021-04-23] VITALS: Ht 177.8 cm; Wt 94.4 kg
[~2021-04-23 16:53] MED LIST changes: +APIX5TAB PO; +MOMETASONE INH; +OXYC-307 PO
--- NOTE | 2021-04-23 16:56 | NUR ---
PT BIB EMS FROM [facility] A [facility]NSFER, PT MISSED DIALYSIS ON FRIDAY AND PRESENTED TO ED TODAY FOR C/O CHEST PAIN AND L SIDED WEAKNESS. HEPARIN DRIP INITIATED AT [facility], GOING AT 500UNITS, 5ML PER HOUR. ASA, METOPROLOL AND FENTANYL GIVEN PRIOR TO ARRIVAL AT THIS ED.
--- NOTE | 2021-04-23 17:18 | NUR ---
WHEN LOOKING IN NOTES SENT FROM [facility], PATIENT WEIGHT DOCUMENTED 177KG. HEPARIN HELD AT THIS TIME TO CONFIRM PROPER DOSE AND PATIENT WEIGHT.
--- NOTE | 2021-04-23 17:40 | NUR ---
DR. HERNANDEZ MADE AWARE OF HEPARIN DOSING, WHICH APPEARED OFF. HELD AT THIS TIME AND REPORT TO JAH MATHEWS.
[2021-04-23] MEDS ORDERED: MOME13HF3 INH (17:44)
[2021-04-23] MEDS ORDERED: ITRA100C PO (17:44)
[2021-04-23] MEDS ORDERED: ETOD-95 PO (17:44)
[2021-04-23] MEDS ORDERED: ASPI81TA45 PO (17:44)
[2021-04-23 17:53] LABS: MEAN CORPUSCULAR HGB CONC 33.8 g/dL (33.2-36.2); MEAN PLATELET VOLUME 6.6 fL (7.4-10.4); PLATELET COUNT 201 x10^3/uL (130-400); RED BLOOD COUNT 3.91 x10^6/uL (4.38-5.82); RED CELL DISTRIBUTION WIDTH 16.5 % (9.4-14.8)
--- NOTE | 2021-04-23 17:58 | NUR ---
RECEIVED REPORT FROM HANNAH TYSON; PT UPRIGHT ON GURNEY AWAKE & CALM, RESPONDS APPROP TO STAFF, NAD AT REST, COMFORT MEASURES PROVIDED, CALL LIGHT WITHIN REACH.
[2021-04-23] MEDS ORDERED: SODIUM CHLORIDE FLUSH 10ML SYR IVF ONE (18:00)
[2021-04-23] MEDS ORDERED: HEPARIN 25,000 UNITS/250ML PMX 250 ML IV PRN (18:00)
[2021-04-23] MEDS ORDERED: HEPARIN 5,000 UNITS/ML, 1ML IV PRN (18:00)
[2021-04-23] MEDS ORDERED: HEPARIN 5,000 UNITS/ML, 1ML IV ONE (18:00)
[2021-04-23 18:03] LABS: ANION GAP 8 mmol/L (5-15); CALCIUM 10.1 mg/dL (8.5-10.1); CHLORIDE 94 mmol/L (98-107); CREATININE 8.07 mg/dL (0.7-1.3)
[2021-04-23 18:36] LABS: TROPONIN I 0.135 ng/mL (0.000-0.045)
[2021-04-23 18:44] LABS: BASOS% (MANUAL) 2 % (0-1); EOS#(MANUAL) 0.34 x10^3/uL (0.0-0.4); EOS% (MANUAL) 7 % (1-7); LYMPH#(MANUAL) 0.88 x10^3/uL (1-3.4); LYMPHS% (MANUAL) 18 % (22-44); MONOS#(MANUAL) 0.49 x10^3/uL (0.3-2.7); MONOS% (MANUAL) 10 % (2-9); SEG#(MANUAL) 3.09 x10^3/uL (1.8-6.8); SEGS% (MANUAL) 63 % (42-75)
[2021-04-23 18:45] LABS: OVALOCYTES 1+; POLYCHROMASIA 1+
[2021-04-23 18:47] LABS: <PLATELET ESTIMATE> ADEQUATE; SMALL PLATELETS 1+
--- NOTE | 2021-04-23 19:06 | NUR ---
REPORT GIVEN TO NINA TYSON
--- NOTE | 2021-04-23 19:06 | NUR ---
report received from Bell TYSON, assuming care of pt at this time.
--- NOTE | 2021-04-23 19:12 | NUR ---
anti Xa resulted, MD aware. Per MD Weems, Heparin to be held at this time.
[2021-04-23] MEDS ORDERED: SODIUM CHLORIDE FLUSH 10ML SYR IVF PRN (19:30)
--- NOTE | 2021-04-23 20:15 | NUR ---
pt resting in bed, all monitors attached, vss, nadn.
[2021-04-23] MEDS ORDERED: MELATONIN 5 MG TABLET PO PRN (22:00)
[2021-04-23] MEDS ORDERED: ONDANSETRON 2MG/ML, 2ML IVPush PRN (22:00)
[2021-04-23] MEDS ORDERED: ACETAMINOPHEN 500 MG TABLET PO PRN (22:00)
[2021-04-23] MEDS ORDERED: POLYETHYLENE GLYCOL 17 GM PACKET PO PRN (22:00)
[2021-04-23] MEDS ORDERED: GUAIFENESIN/DM 200-20MG, 10ML UDC PO PRN (22:00)
[2021-04-23] MEDS ORDERED: FAMOTIDINE 20 MG/2 ML IVPush ONE (22:00)
[2021-04-23 22:30] LABS: TROPONIN I 0.147 ng/mL (0.000-0.045)
[2021-04-23] MEDS ORDERED: HEPARIN 5,000 UNITS/ML, 1ML ONE (23:01)
[2021-04-23] MEDS ORDERED: HEPARIN 25,000 UNITS/250ML PMX 250 ML ONE (23:01)
[2021-04-23] MEDS ORDERED: LABETALOL 5MG/ML, 20ML ONE (23:13)
[2021-04-23] MEDS ORDERED: FAMOTIDINE 20 MG/2 ML ONE (23:13)
[2021-04-23] MEDS: LABETALOL 5MG/ML, 20ML IVPush PRN (23:20)
--- NOTE | 2021-04-23 23:42 | NUR ---
PT MEDICATED PER ORDER, TOLERATED WELL, VSS, NADN.
--- NOTE | 2021-04-24 03:00 | NUR ---
Received report from JAH Hammonds. This Rn to assume care.
[2021-04-24 03:49] LABS: ANION GAP 6 mmol/L (5-15); CHLORIDE 95 mmol/L (98-107); CREATININE 8.77 mg/dL (0.7-1.3)
--- NOTE | 2021-04-24 03:50 | NUR ---
Lab at bedside. Transferred patient to hospital bed. Heparin infusing. No complaints at this time. Snacks provided.
--- NOTE | 2021-04-24 03:51 | NUR ---
Next anti-Xa not ordered. Ordered per protocol.
[2021-04-24 03:56] LABS: TROPONIN I 0.126 ng/mL (0.000-0.045)
--- NOTE | 2021-04-24 03:56 | NUR ---
Troponin trending down.
--- NOTE | 2021-04-24 06:04 | NUR ---
Lab was at bedside around 0530; no anti-Xa result yet. Called lab to follow up on next anti-Xa. They stated it hasn't been sent to lab yet to be processed.
[2021-04-24 06:12] LABS: BASOPHILS % (AUTO) 3 % (0-1); EOSINOPHILS % (AUTO) 11 % (1-7); LYMPHOCYTES % (AUTO) 19 % (22-44); MEAN CORPUSCULAR HEMOGLOBIN 30.2 pg (27.5-34.5); MEAN CORPUSCULAR HGB CONC 33.7 g/dL (33.2-36.2); MEAN PLATELET VOLUME 7.2 fL (7.4-10.4); MONOCYTES % (AUTO) 7 % (2-9); NEUTROPHILS % (AUTO) 60 % (42-75); PLATELET COUNT 165 x10^3/uL (130-400); RED BLOOD COUNT 4.26 x10^6/uL (4.38-5.82); RED CELL DISTRIBUTION WIDTH 16.4 % (9.4-14.8)
--- NOTE | 2021-04-24 06:30 | NUR ---
Lab called to report that a redraw is needed for the anti-Xa.
--- NOTE | 2021-04-24 07:01 | NUR ---
RECEIVED REPORT FROM AMAURI TYSON; PT AWAKE ON HOSPITAL BED WITH LAB AT BS FOR ANTI-XA REDRAW, RESPONDS APPROP TO STAFF, NO NEEDS AT THIS TIME, CALL LIGHT WITHIN REACH.
--- NOTE | 2021-04-24 07:03 | NUR ---
Lab at bedside for anti-Xa. Report to JAH Luu. Patient care transferred.
--- NOTE | 2021-04-24 08:03 | NUR ---
PT UPRIGHT ON HOSPITAL BED WITH EYES CLOSED BUT AWAKENS/RESPONDS APPROP TO STAFF, NO NEEDS AT THIS TIME, CALL LIGHT WITHIN REACH.
[2021-04-24] MEDS ORDERED: HEPARIN 5,000 UNITS/ML, 1ML ONE ×2 (08:05→15:01)
[2021-04-24] MEDS: LABETALOL 5MG/ML, 20ML IVPush PRN ×3 (08:11→18:49)
[2021-04-24] MEDS ORDERED: ACETAMINOPHEN 500 MG TABLET ONE (08:15)
--- NOTE | 2021-04-24 08:26 | NUR ---
BREAKFAST TRAY GIVEN
--- NOTE | 2021-04-24 09:04 | NUR ---
PT REMAINS UPRIGHT ON HOSPITAL BED WITH EYES CLOSED WHILE LISTENING TO THE TV, AWAKENS/RESPONDS APPROP TO STAFF, COMFORT MEASURES PROVIDED, CALL LIGHT WITHIN REACH.
--- NOTE | 2021-04-24 10:03 | NUR ---
PT UPRIGHT ON HOSPITAL BED WITH EYES CLOSED WHILE LISTENING TO THE TV, AWAKENS/RESPONDS APPROP TO STAFF, NO NEEDS AT THIS TIME, CALL LIGHT WITHIN REACH.
--- NOTE | 2021-04-24 10:49 | NUR ---
PT TO CT
--- NOTE | 2021-04-24 11:40 | NUR ---
PT RETURNED FROM CT
--- NOTE | 2021-04-24 12:01 | NUR ---
PT REMAINS UPRIGHT ON HOSPITAL BED AWAKE & WATCHING TV, RESPONDS APPROP TO STAFF, LUNCH TRAY GIVEN WITH OTHER COMFORT MEASURES PROVIDED, CALL LIGHT WITHIN REACH.
--- NOTE | 2021-04-24 12:56 | NUR ---
RELIEF RN: PT RESTING IN HOSPITAL BED. NEW LUNCH TRAY PROVIDED. DENIES ANY NEEDS. WILL CTM.
--- NOTE | 2021-04-24 13:00 | NUR ---
Annetta crain in ED - 04/24/21 at 1306 by TSHUTES LAB AT FOR ANTI-XA DRAW
--- NOTE | 2021-04-24 13:00 | NUR ---
Note paras in ED - 04/24/21 at 1306 by TSHUTES PT UPRIGHT ON HOSPITAL BED AWAKE & WATCHING TV, RESPONDS APPROP TO STAFF, NEW LUNCH TRAY GIVEN- NO OTHER NEEDS AT THIS TIME, CALL LIGHT WITHIN REACH.
--- NOTE | 2021-04-24 13:00 | NUR ---
LAB AT FOR ANTI-XA DRAW; PT UPRIGHT ON HOSPITAL BED AWAKE & WATCHING TV, RESPONDS APPROP TO STAFF, NEW LUNCH TRAY GIVEN- NO OTHER NEEDS AT THIS TIME, CALL LIGHT WITHIN REACH.
--- NOTE | 2021-04-24 13:13 | NUR ---
DR CONKLIN AT BS FOR ROUNDS, DC HEPARIN GTT AT THIS TIME.
--- NOTE | 2021-04-24 14:05 | NUR ---
PT REMAINS UPRIGHT ON HOSPITAL BED AWAKE & WATCHING TV, RESPONDS APPROP TO STAFF, COMFORT MEASURES PROVIDED, CALL LIGHT WITHIN REACH.
--- NOTE | 2021-04-24 15:04 | NUR ---
PT ATTEMPTED TO HAVE BM BUT UNABLE, BACK TO HOSPITAL BED AWAKE & WATCHING TV, RESPONDS APPROP TO STAFF, COMFORT MEASURES PROVIDED, CALL LIGHT WITHIN REACH. RATNA CANCINO APPLIED, PT VERBALIZED/DEMONSTRATED PROPER USE OF IS- ABLE TO REACH 2000ML.
[2021-04-24] MEDS: HEPARIN 5,000 UNITS/ML, 1ML SQ SCH ×2 (15:26→23:39)
--- NOTE | 2021-04-24 16:02 | NUR ---
PT UPRIGHT ON HOSPITAL BED AWAKE & WATCHING TV, RESPONDS APPROP TO STAFF, NO NEEDS AT THIS TIME, CALL LIGHT WITHIN REACH.
--- NOTE | 2021-04-24 17:24 | NUR ---
Annetta crain in [facility] - 04/24/21 at 1725 by SHARLENE REPORT GIVEN TO AMAURI TYSON
--- NOTE | 2021-04-24 17:25 | NUR ---
Pt to be admitted to [facility], room 346. Report called to DANYELLE.
[2021-04-24 18:50] VITALS: BP 182/112
[2021-04-24 23:42] VITALS: BP 154/104
[2021-04-25 01:13] VITALS: BP 164/110
[2021-04-25] MEDS: LABETALOL 5MG/ML, 20ML IVPush PRN ×2 (01:35→08:10)
[2021-04-25] MEDS: OXYcodone/APAP 10/325MG TABLET PO PRN ×2 (02:45→15:58)
[2021-04-25] MEDS: CARVEDILOL 25 MG TABLET PO SCH ×4 (05:33→21:51)
[2021-04-25 05:35] VITALS: BP 154/117
[2021-04-25 06:36] LABS: ALBUMIN 2.9 g/dL (3.4-5.0); ANION GAP 9 mmol/L (5-15); BASOPHILS % (AUTO) 2 % (0-1); CALCIUM 9.5 mg/dL (8.5-10.1); CHLORIDE 94 mmol/L (98-107); EOSINOPHILS % (AUTO) 6 % (1-7); LYMPHOCYTES % (AUTO) 19 % (22-44); MEAN CORPUSCULAR HEMOGLOBIN 29.5 pg (27.5-34.5); MEAN CORPUSCULAR HGB CONC 32.8 g/dL (33.2-36.2); MEAN PLATELET VOLUME 7.2 fL (7.4-10.4); MONOCYTES % (AUTO) 8 % (2-9); NEUTROPHILS % (AUTO) 64 % (42-75); PLATELET COUNT 189 x10^3/uL (130-400); RED BLOOD COUNT 3.84 x10^6/uL (4.38-5.82); RED CELL DISTRIBUTION WIDTH 16.4 % (9.4-14.8); RETICULOCYTE COUNT % 1.29 % (0.5-1.5)
[2021-04-25 06:39] LABS: ALANINE AMINOTRANSFERASE 28 U/L (12-78); ALKALINE PHOSPHATASE 114 U/L (45-117); BILIRUBIN,TOTAL 0.5 mg/dL (0.2-1.0); TOTAL PROTEIN 7.2 g/dL (6.4-8.2)
[2021-04-25] MEDS: HEPARIN 5,000 UNITS/ML, 1ML SQ SCH ×2 (08:09→15:56)
[2021-04-25 08:14] VITALS: BP 164/102
[2021-04-25 09:50] VITALS: BP 146/100
[2021-04-25] MEDS ORDERED: ERGOCALCIFEROL 50,000 UNIT CAPSULE PO SCH (11:30)
[2021-04-25 13:52] VITALS: BP 177/108
[2021-04-25] MEDS: IRON SUCROSE COMPLEX 100MG/5ML IV SCH (15:55)
[2021-04-25 18:00] VITALS: BP 142/88
[2021-04-25] MEDS: APIXABAN 5 MG TABLET PO SCH (21:51)
[2021-04-25] MEDS: GABAPENTIN 100 MG CAPSULE PO SCH (21:51)
[2021-04-26 01:19] VITALS: BP 141/92
[2021-04-26 05:45] VITALS: BP 147/101
[2021-04-26] MEDS: CARVEDILOL 25 MG TABLET PO SCH ×4 (05:48→20:51)
[2021-04-26 06:26] LABS: BASOPHILS % (AUTO) 3 % (0-1); EOSINOPHILS % (AUTO) 8 % (1-7); LYMPHOCYTES % (AUTO) 24 % (22-44); MEAN CORPUSCULAR HEMOGLOBIN 30.4 pg (27.5-34.5); MEAN CORPUSCULAR HGB CONC 33.9 g/dL (33.2-36.2); MEAN PLATELET VOLUME 7.4 fL (7.4-10.4); MONOCYTES % (AUTO) 10 % (2-9); NEUTROPHILS % (AUTO) 54 % (42-75); PLATELET COUNT 161 x10^3/uL (130-400); RED BLOOD COUNT 3.63 x10^6/uL (4.38-5.82); RED CELL DISTRIBUTION WIDTH 16.2 % (9.4-14.8)
[2021-04-26 06:29] LABS: ALBUMIN 2.9 g/dL (3.4-5.0); ANION GAP 7 mmol/L (5-15); CALCIUM 9.2 mg/dL (8.5-10.1); CHLORIDE 98 mmol/L (98-107); CREATININE 7.85 mg/dL (0.7-1.3)
[2021-04-26] MEDS ORDERED: REGADENOSON 0.4 MG/5 ML SYRINGE ONE (08:41)
[2021-04-26 11:08] VITALS: BP 172/112
[2021-04-26] MEDS: ASPIRIN 81 MG TABLET EC PO SCH (11:20)
[2021-04-26] MEDS: APIXABAN 5 MG TABLET PO SCH ×2 (11:20→20:51)
[2021-04-26] MEDS: IRON SUCROSE COMPLEX 100MG/5ML IV SCH (11:21)
[2021-04-26] MEDS: GABAPENTIN 100 MG CAPSULE PO SCH ×3 (11:33→20:51)
[2021-04-26 13:08] VITALS: BP 143/93
[2021-04-26 19:39] VITALS: BP 99/67
[2021-04-26] MEDS: OXYcodone/APAP 10/325MG TABLET PO PRN (21:16)
[2021-04-27 00:52] VITALS: BP 147/89
[2021-04-27] MEDS: OXYcodone/APAP 10/325MG TABLET PO PRN (02:59)
[2021-04-27 05:25] LABS: BASOPHILS % (AUTO) 3 % (0-1); EOSINOPHILS % (AUTO) 6 % (1-7); LYMPHOCYTES % (AUTO) 23 % (22-44); MEAN CORPUSCULAR HGB CONC 33.3 g/dL (33.2-36.2); MEAN PLATELET VOLUME 7.6 fL (7.4-10.4); MONOCYTES % (AUTO) 12 % (2-9); NEUTROPHILS % (AUTO) 57 % (42-75); PLATELET COUNT 171 x10^3/uL (130-400); RED BLOOD COUNT 3.57 x10^6/uL (4.38-5.82); RED CELL DISTRIBUTION WIDTH 16.4 % (9.4-14.8)
[2021-04-27 05:30] LABS: ALBUMIN 2.8 g/dL (3.4-5.0); ANION GAP 8 mmol/L (5-15); CALCIUM 8.6 mg/dL (8.5-10.1); CHLORIDE 96 mmol/L (98-107)
[2021-04-27 05:34] LABS: ALANINE AMINOTRANSFERASE 23 U/L (12-78); ALKALINE PHOSPHATASE 107 U/L (45-117); BILIRUBIN,TOTAL 0.5 mg/dL (0.2-1.0); TOTAL PROTEIN 6.7 g/dL (6.4-8.2)
[2021-04-27] MEDS: CARVEDILOL 25 MG TABLET PO SCH ×2 (05:52→08:48)
[2021-04-27] MEDS: GABAPENTIN 100 MG CAPSULE PO SCH (08:48)
[2021-04-27] MEDS: APIXABAN 5 MG TABLET PO SCH (08:48)
[2021-04-27] MEDS: IRON SUCROSE COMPLEX 100MG/5ML IV SCH ×2 (08:48→08:57)
[2021-04-27] MEDS: ASPIRIN 81 MG TABLET EC PO SCH (08:48)
[2021-04-27 08:50] VITALS: BP 118/80
== END 2021-04-27 12:19 | disposition home or self-care (01) | DRG 194 ==
LOC: ED 17:49 → EDIP 19:24 → 3N 04-24 17:21
PROVIDERS: ADMIT Internal Medicine; ATTEND Internal Medicine
DX: I13.2 Hypertensive heart and chronic kidney disease with heart failure and with stage 5 chronic kidney disease, or end stage renal disease (principal); I26.99 Other pulmonary embolism without acute cor pulmonale; I21.A1 Myocardial infarction type 2; D68.69 Other thrombophilia; D63.8 Anemia in other chronic diseases classified elsewhere; E87.1 Hypo-osmolality and hyponatremia; I27.20 Pulmonary hypertension, unspecified; N18.6 End stage renal disease; E87.70 Fluid overload, unspecified; I50.9 Heart failure, unspecified; E66.01 Morbid (severe) obesity due to excess calories; F19.10 Other psychoactive substance abuse, uncomplicated; G89.29 Other chronic pain; I25.2 Old myocardial infarction; I34.0 Nonrheumatic mitral (valve) insufficiency; J44.9 Chronic obstructive pulmonary disease, unspecified; M89.8X9 Other specified disorders of bone, unspecified site; Z86.73 Personal history of transient ischemic attack (TIA), and cerebral infarction without residual deficits; Z87.891 Personal history of nicotine dependence; Z99.2 Dependence on renal dialysis
CPT/HCPCS: 36415; 71045; 71250; 78452; 80048; 80053; 80069; 82040; 82306; 82728; 83540; 83550; 83735; 84100; 84443; 84484; 85025; 85045; 85520; 90935; 93005; 93017; 93922; 99285; G0378; J1644; J1756; J2785; A9502